=== PATIENT | female | born 1930 | race Caucasian/White ===

== ENCOUNTER 2017-08-15 15:40 | Emergency (ER) | payer MEDICARE, OTHER ==
--- NOTE | 2017-08-15 16:32 | EDM.PDOC ---
ED HPI GENERAL MEDICAL PROBLEM - General Chief Complaint: General Stated Complaint: HIP PAIN Time Seen by Provider: 08/15/17 16:21 Source of Information: Reports: Patient History Limitations: Reports: No Limitations - History of Present Illness INITIAL COMMENTS - FREE TEXT/NARRATIVE: 87 YO WF presents to ER complaining of low back pain with radiation to left leg which began 3 days ago. Pt states her pain became more severe prompting ER evaluation. Pt denies any weakness or parathesias to left leg but states she has a "shooting" pain down her leg and has had difficulty walking when the pain persists. Pt denies any injury. Pt denies any bowel or bladder dysfunction. Pt denies any numbness between her legs or "saddle sign". Onset Date: 08/12/17 Duration: Day(s): (3) Location: Reports: Back, Lower Extremity, Left Quality: Reports: Ache Severity: Moderate Improves with: Reports: Rest Worsens with: Reports: Movement Associated Symptoms: Reports: No Other Symptoms Treatments TRAVEL ACCOMMODATIONS RATER: Reports: Acetaminophen, NSAIDS Left Hip Pain Score (Numeric/FACES): 7 - Related Data Allergies Allergy/AdvReac Type Severity Reaction Status Date / Time chlorpheniramine Allergy Cannot Verified 08/15/17 15:54 [From [facility]] Remember codeine [From [facility]] Allergy Cannot Verified 08/15/17 15:54 Remember dihydrocodeine bitartrate Allergy Cannot Verified 08/15/17 15:54 [From [facility]] Remember phenylephrine HCl Allergy Cannot Verified 08/15/17 15:54 [From [facility]] Remember pseudoephedrine HCl Allergy Cannot Verified 08/15/17 15:54 [From [facility]] Remember Tetanus Vaccines and Toxoid Allergy Cannot Verified 08/15/17 15:54 [Tetanus Vaccines & Toxoid] Remember Home Meds: Home Meds Metoprolol Succinate [Toprol XL] 25 mg PO Q48H 02/23/14 [History] Acetaminophen/HYDROcodone [Bacliff 325-5 MG] 1 tab PO Q4H PRN #15 tablet 08/15/17 [Rx] Carboxymethylcellulose Sodium [Refresh Tears] 1 drop EYERT BID PRN 08/15/17 [ History] Cyclobenzaprine [Flexeril] 10 mg PO TID PRN #15 tablet 08/15/17 [Rx] Prednisone [IJD: predniSONE] 20 mg PO WITHBREAKFAST #15 tab 08/15/17 [Rx] traMADol HCl [Tramadol HCl] 50 mg PO BID PRN 08/15/17 [History] Social & Family History - Tobacco Use Smoking Status *Q: Former Smoker Used Tobacco, but Quit: Yes Month Tobacco Last Used: December Second Hand Smoke Exposure: No - Caffeine Use Caffeine Use: Reports: Soda, Tea - Alcohol Use Days Per Week of Alcohol Use: 0 - Recreational Drug Use Recreational Drug Use: No - Living Situation & Occupation Living situation: Reports: ED ROS GENERAL - Review of Systems Review Of Systems: See Below Constitutional: Reports: No Symptoms HEENT: Reports: No Symptoms Respiratory: Reports: No Symptoms Cardiovascular: Reports: No Symptoms Endocrine: Reports: No Symptoms GI/Abdominal: Reports: No Symptoms : Reports: No Symptoms Musculoskeletal: Reports: Back Pain, Leg Pain Skin: Reports: No Symptoms Neurological: Reports: No Symptoms Psychiatric: Reports: No Symptoms Hematologic/Lymphatic: Reports: No Symptoms Immunologic: Reports: No Symptoms ED EXAM, GENERAL - Physical Exam Exam: See Below Exam Limited By: No Limitations General Appearance: Alert, WD/WN, No Apparent Distress Throat/Mouth: Normal Inspection, Normal Lips, Normal Teeth, Normal Gums, Normal Oropharynx, Normal Voice, No Airway Compromise Head: Atraumatic, Normocephalic Neck: Normal Inspection, Supple, Non-Tender, Full Range of Motion Respiratory/Chest: No Respiratory Distress, Lungs Clear, Normal Breath Sounds, No Accessory Muscle Use, Chest Non-Tender Cardiovascular: Normal Peripheral Pulses, Regular Rate, Rhythm, No Edema, No Gallop, No JVD, No Murmur, No Rub GI/Abdominal: Normal Bowel Sounds, Soft, Non-Tender, No Organomegaly, No Distention, No Abnormal Bruit, No Mass, Pelvis Stable Back Exam: Full Range of Motion, Muscle Spasm, Paraspinal Tenderness Extremities: Normal Inspection, Normal Range of Motion, Non-Tender, Normal Capillary Refill, No Pedal Edema Neurological: Alert, Oriented, CN II-XII Intact, Normal Cognition, Normal Gait, Normal Reflexes, No Motor/Sensory Deficits Psychiatric: Normal Affect, Normal Mood Skin Exam: Warm, Dry, Intact, Normal Color, No Rash Lymphatic: No Adenopathy Course - Vital Signs Last Recorded V/S: Last Vital Signs Temp 36.1 C 08/15/17 15:46 Pulse 85 08/15/17 15:46 Resp 18 08/15/17 15:46 BP 160/60 H 08/15/17 15:46 Pulse Ox 98 08/15/17 15:46 Departure - Departure Time of Disposition: 16:41 Disposition: Home, Self-Care 01 Condition: Good Clinical Impression: Sciatica Qualifiers: Laterality: left Qualified Code(s): M54.32 - Sciatica, left side - Discharge Information Prescriptions: Acetaminophen/HYDROcodone [Bacliff 325-5 MG] 1 tab PO Q4H PRN #15 tablet PRN Reason: Pain Cyclobenzaprine [Flexeril] 10 mg PO TID PRN #15 tablet PRN Reason: Muscle Spasm Prednisone [IJD: predniSONE] 20 mg PO WITHBREAKFAST #15 tab Instructions: Sciatica Referrals: Marlene Noriega MD [Primary Care Provider] - - Assessment/Plan Assessment:: 1. low back pain- acute left sided sciatica Plan: 1. discharge home 2. prednisone 60mg PO QD x 5 days 3. flexeril 10mg PO TID PRN spasm 4. hydrocodone 5/325 Q6 PRN pain 5. follow up in clinic with Shila Oconnell 08/18/2017 11:00am 6. return to ER for worsening symptoms
[2017-08-15] MEDS ORDERED: methylPREDNISolone Sodium Succinate 125 MG/2 ML SDV IM ONE (16:38)
[2017-08-15] MEDS ORDERED: Ketorolac 60 MG/2 ML SDV IM ONE (16:38)
== END 2017-08-15 17:00 | disposition home or self-care (01) ==
LOC: KA.ED 15:40
DX: M54.42 Lumbago with sciatica, left side (principal); Z88.8 Allergy status to other drugs, medicaments and biological substances; Z88.5 Allergy status to narcotic agent; Z87.891 Personal history of nicotine dependence
CPT/HCPCS: 99283; J1885; J2930; 96372